=== PATIENT | male | born 1990 | race Caucasian/White ===

== ENCOUNTER 2022-05-22 10:43 | Emergency (ER) | payer MEDICAID ==
[~2022-05-22] VITALS: Ht 177.8 cm; Wt 88.0 kg
[2022-05-22] MEDS ORDERED: TETANUS, DIPHTHERIA, PERTUSSIS VAC/PF 0.5ML (>10YR OLD) IM ONE (11:45)
[2022-05-22] MEDS ORDERED: ONDANSETRON HCL 4MG/2ML INJ IV ONE (11:45)
[2022-05-22] MEDS ORDERED: SODIUM CHLORIDE 0.9% 1,000 ML IV ONE (11:45)
[2022-05-22] MEDS ORDERED: MORPHINE SULFATE 4 MG/ML CPJ (NOT FOR IM USE) IV ONE ×3 (11:45→17:00)
[2022-05-22 12:35] LABS: CHLORIDE 95 mEq/L (98-107)
[2022-05-22 12:41] LABS: PROTHROMBIN TIME 10.5 sec (9.6-11.0)
[2022-05-22 12:44] LABS: BASOPHILS % 0.4 % (0.0-2.0); EOSINOPHILS % 0.7 % (0.0-5.0); LYMPHOCYTES % 22.5 % (20.0-50.0); MEAN CORPUSCULAR HEMOGLOBIN 31.4 pg (28.0-32.0); MEAN CORPUSCULAR VOLUME 90.5 fL (80.0-94.0); MEAN PLATELET VOLUME 8.6 fl (7.4-10.4); MONOCYTES % 5.8 % (2.0-8.0); NEUTROPHILS % 70.6 % (40.0-76.0); PLATELET 387 x1000/uL (130-400); RED BLOOD CELL COUNT 5.41 mill/uL (4.7-6.1); RED CELL DISTRIBUTION WIDTH 12.9 % (11.6-14.6)
[2022-05-22 12:45] LABS: ETHANOL BLOOD < 10 mg/dL
[2022-05-22] MEDS ORDERED: IOHEXOL-300 100 ML BOTTLE ONE (15:49)
[2022-05-22] MEDS ORDERED: LIDOCAINE HCL 1% 20ML VIAL (Pyxis) INJ INFIL NR (16:00)
[2022-05-22] MEDS ORDERED: CEPHALEXIN 250MG CAPSULE PO ONE (16:00)
[2022-05-22] MEDS ORDERED: CEPH500C2 MT (16:06)
[2022-05-22] MEDS ORDERED: ACET-2708 MT (16:06)
[2022-05-22 16:38] LABS: CLARITY URINE CLEAR (CLEAR); COLOR URINE YELLOW (YELLOW); KETONES URINE 2+ (NEGATIVE); LEUKOCYTE ESTERASE URINE NEGATIVE (NEGATIVE); NITRITE URINE NEGATIVE (NEGATIVE); OCCULT BLOOD URINE NEGATIVE (NEGATIVE); PH URINE 5.5 (4.5-8.0); PROTEIN URINE TRACE (NEGATIVE); SPECIFIC GRAVITY URINE 1.087 (1.005-1.030)
[2022-05-22] MEDS ORDERED: HYDR-4001 MT (16:53)
[2022-05-22] MEDS ORDERED: BACITRACIN ZINC OINT UDPKT TOP ONE (17:00)
[2022-05-22 17:13] VITALS: BP 140/101
[2022-05-22 17:44] LABS: *AMPHETAMINES SCREEN URINE NEGATIVE (NEGATIVE); *BARBITURATES SCREEN URINE NEGATIVE (NEGATIVE); *BENZODIAZEPINES SCREEN URINE NEGATIVE (NEGATIVE); *COCAINE SCREEN URINE PRESUMTIVE POSITIVE (NEGATIVE); CANNABINOID URINE SCREEN PRESUMTIVE POSITIVE (NEGATIVE); METHADONE URINE SCREEN NEGATIVE (NEGATIVE); OPIATES URINE SCREEN PRESUMTIVE POSITIVE (NEGATIVE); PHENCYCLIDINE URINE SCREEN NEGATIVE (NEGATIVE)
== END 2022-05-22 17:33 | disposition home or self-care (01) ==
LOC: ER 10:43
DX: S31.114A Laceration without foreign body of abdominal wall, left lower quadrant without penetration into peritoneal cavity, initial encounter (principal); E10.65 Type 1 diabetes mellitus with hyperglycemia; Z79.4 Long term (current) use of insulin; W26.0XXA Contact with knife, initial encounter; Y93.89 Activity, other specified; Y92.018 Other place in single-family (private) house as the place of occurrence of the external cause
CPT/HCPCS: 36415; 74177; 80053; 80305; 80320; 81003; 82962; 83605; 83690; 85025; 85610; 87040; 90471; 90715; 96361; 96374; 96375; 96376; 99285; J2270; J2405; J7030; Q9967; G0480